=== PATIENT | male | born 1940 | race Two or more races ===

== ENCOUNTER 2022-03-03 09:55 | Inpatient (IN) | payer OTHER ==
[~2022-03-03] VITALS: Ht 188 cm; Wt 88.5 kg
[2022-03-03] MEDS ORDERED: GLUMETZA500 MG PO (10:10)
[2022-03-03] MEDS ORDERED: SYNTHROID125 MCG PO (10:10)
[2022-03-07] MEDS ORDERED: TAMS0.4C PO (10:45)
[2022-03-07] MEDS ORDERED: LORATADINE10 MG PO (10:45)
[2022-03-07] MEDS ORDERED: GLUMETZA500 MG PO (10:47)
[2022-03-07] MEDS ORDERED: LEVOTHYROXINE150 MCG PO (10:47)
[2022-03-07] MEDS ORDERED: MEDROLPACK PO (10:48)
[2022-03-07] MEDS ORDERED: GLIMEPIRIDE4 MG PO (10:49)
== END 2022-03-07 14:11 | disposition home or self-care (01) | DRG 596 ==
LOC: ER 09:55 → MEDI 14:49
PROVIDERS: ADMIT Internal Medicine; ATTEND Internal Medicine
PROC: 8E0ZXY6 Isolation (ICD-10-PCS; principal; 2022-03-03)
PROC: B54DZZZ Ultrasonography of Bilateral Lower Extremity Veins (ICD-10-PCS; 2022-03-03)
PROC: 0HDNXZZ Extraction of Left Foot Skin, External Approach (ICD-10-PCS; 2022-03-04)
DX: L51.3 Stevens-Johnson syndrome-toxic epidermal necrolysis overlap syndrome (principal); L97.429 Non-pressure chronic ulcer of left heel and midfoot with unspecified severity; T50.905A Adverse effect of unspecified drugs, medicaments and biological substances, initial encounter; S91.312A Laceration without foreign body, left foot, initial encounter; E11.621 Type 2 diabetes mellitus with foot ulcer; E03.9 Hypothyroidism, unspecified; Y92.9 Unspecified place or not applicable; Z20.822 Contact with and (suspected) exposure to COVID-19; Z79.84 Long term (current) use of oral hypoglycemic drugs